=== PATIENT | female | born 1950 | race Caucasian/White ===

== ENCOUNTER 2016-08-02 05:34 | Observation (INO) | payer BC, OTHER ==
[~2016-08-02] VITALS: Ht 167.6 cm; Wt 146.5 kg
[~2016-08-02 05:34] MED LIST: BIOT10TA PO; NAPR220T95 PO
[2016-08-02] MEDS ORDERED: HEPARIN SODIUM - SQ 10,000 UNITS/ML VIAL SQ PRN (06:00)
[2016-08-02] MEDS ORDERED: ceFAZolin 2 GM PREMIX 50 ML IV SCH (06:00)
[2016-08-02] MEDS ORDERED: SODIUM CHLORIDE FLUSH PRN IVF (06:00)
[2016-08-02] MEDS ORDERED: SODIUM CHLORID 0.9% 500 ML IV SCH (06:15)
[2016-08-02] MEDS ORDERED: LACTATED RINGER'S 1000 ML IV SCH (06:15)
[2016-08-02] MEDS ORDERED: METOPROLOL TARTRATE 25 MG TAB PO PRN (06:15)
[2016-08-02] MEDS ORDERED: INSULIN HUMAN REGULAR 1,000 UNITS/10 ML VIAL SQ PRN (06:15)
[2016-08-02 06:29] VITALS: BP 163/92; PULSE 95; RESP 20; TEMP 98.3; O2SAT 94
[2016-08-02] MEDS ORDERED: LIDOCAINE 1%/EPINEPHrine 1:100,000 SOLN 30 ML VIAL ONE (06:56)
[2016-08-02] MEDS ORDERED: METHYLENE BLUE 10 MG/ML VIAL ONE (06:56)
[2016-08-02] MEDS ORDERED: MIDAZOLAM HCL 2 MG/2 ML VIAL ONE (07:21)
[2016-08-02] MEDS ORDERED: FAMOTIDINE 20 MG/2 ML VIAL ONE (07:22)
[2016-08-02] MEDS ORDERED: ACETAMINOPHEN 1000 MG/100 ML VIAL IV ONE (07:26)
[2016-08-02] MEDS ORDERED: SODIUM CHLORIDE FLUSH BID IVF SCH (09:00)
[2016-08-02] MEDS ORDERED: ceFAZolin INJ 1,000 MG VIAL IV ONE (10:40)
[2016-08-02] MEDS ORDERED: METHYLENE BLUE 10 MG/ML VIAL OTHER ONE (11:00)
[2016-08-02] MEDS ORDERED: NORMOSOL R INJ 2,000 ML IV ONE (12:00)
[2016-08-02] MEDS ORDERED: ePHEDrine/NS 50 MG/5 ML SYR IV ONE (12:00)
[2016-08-02] MEDS ORDERED: LACTATED RINGER'S 1000 ML INJ 1,000 ML IV ONE (12:00)
[2016-08-02] MEDS ORDERED: NEOSTIGMINE 3 MG/3 ML SYR IV ONE (12:00)
[2016-08-02] MEDS ORDERED: PROPOFOL 200 MG/20 ML AMP IV ONE (12:00)
[2016-08-02] MEDS ORDERED: ONDANSETRON HCL 4 MG/2 ML VIAL IV PUSH ONE (12:00)
[2016-08-02] MEDS ORDERED: HYDROmorphone HCL PF 1 MG/ML VIAL IVP PRN (12:30)
[2016-08-02] MEDS ORDERED: LORazepam 0.5 MG TAB PO PRN (12:30)
[2016-08-02] MEDS ORDERED: ONDANSETRON HCL 4 MG/2 ML VIAL IVP PRN (12:30)
[2016-08-02] MEDS ORDERED: oxyCODONE/ACETAMINOPHEN 5 MG/325 MG TAB PO PRN (12:30)
[2016-08-02] MEDS ORDERED: DO NOT ADM ANY ANTICOAGULANT DRUGS XX PRN (13:00)
[2016-08-02] MEDS ORDERED: ONDANSETRON INJ 8 MG in DEXTROSE 5% IN WATER INJ 50 ML IV PUSH PRN ×2 (13:00)
[2016-08-02] MEDS: D5-1/2 NS + KCL 20 MEQ INJ 1,000 ML IV SCH ×2 (13:00→20:24)
[2016-08-02] MEDS ORDERED: fentaNYL CITRATE 250 MCG/5 ML AMP ONE (13:04)
[2016-08-02] MEDS: KETOROLAC TROMETHAMINE 30 MG/ML (IVP) VIAL IVP SCH ×2 (13:15→18:21)
[2016-08-02] MEDS ORDERED: *ONDANSETRON 4 MG VIAL PERIprocedural Use ONLY ONE (13:39)
[2016-08-02 15:48] VITALS: O2SAT 96
[2016-08-02 16:00] VITALS: BP 141/81; PULSE 94; RESP 20; TEMP 98; O2SAT 95
[2016-08-02] MEDS: oxyCODONE/ACETAMINOPHEN 5 MG/325 MG TAB PO PRN (16:10)
--- NOTE | 2016-08-02 16:26 | PD.ONC.PN ---
Subjective Subjective Remarks post op note pt awake c/o some nausea RN reports zofran at noon will give order for Reglan 10mg PRN denies pain daughter at bedside Objective Data Date Time Temp Pulse Resp B/P Pulse Ox O2 Delivery O2 Flow Rate FiO2 08/02/16 15:48 96 Nasal Cannula 2.00 08/02/16 15:00 97.7 89 16 142/80 96 Nasal Cannula 2 08/02/16 14:30 97.6 88 16 137/78 95 Nasal Cannula 2 08/02/16 14:15 15 08/02/16 14:00 86 16 138/77 94 Nasal Cannula 2 08/02/16 13:45 85 15 140/79 94 Nasal Cannula 2 08/02/16 13:30 84 15 139/80 93 Nasal Cannula 2 08/02/16 13:15 85 15 141/83 97 Nasal Cannula 4 08/02/16 13:00 85 15 142/83 94 Nasal Cannula 4 08/02/16 12:45 88 15 140/82 92 Nasal Cannula 4 08/02/16 12:30 97.4 84 18 148/87 97 Simple Mask 8 08/02/16 06:29 98.3 95 20 163/92 94 08/02/16 08/02/16 08/02/16 07:00 15:00 23:00 Intake Total 3250 ml Output Total 1375 ml Balance 1875 ml Laboratory Results Laboratory Tests Test 08/02/16 06:15 Blood Type A POSITIVE Antibody Screen NEGATIVE Blood Bank Comment Administered Medications Medications (Trade) Dose Ordered Sig/Madeline Route PRN Reason Start Time Stop Time Status Last Admin Dose Admin Lactated Ringer's 1,000 ml @ 30 mls/hr Q24H IV 08/02/16 06:15 08/02/16 06:30 Potassium Chloride/Dextrose/ Sod Cl (D5-1/2 NS + KCl 20 Meq Inj) 1,000 ml @ 125 mls/hr Q8H IV 08/02/16 12:17 08/02/16 13:00 Ketorolac Tromethamine (Toradol Inj) 15 mg Q6H IVP 08/02/16 13:00 08/03/16 07:01 08/02/16 13:15 Oxycodone/ Acetaminophen (Percocet 5-325 Mg) 1 tab Q4H PRN PO PAIN SCALE 1 TO 5 08/02/16 12:30 08/02/16 16:10 Objective Remarks GENERAL: Well-nourished, well-developed patient. SKIN: Warm and dry. HEAD: Normocephalic., mild facial swelling EYES: No scleral icterus. No injection or drainage. CARDIOVASCULAR: Regular rate and rhythm without murmurs. RESPIRATORY: Breath sounds equal bilaterally. No accessory muscle use. GASTROINTESTINAL: SS are C/D/I EXTREMITIES: No cyanosis, or edema. MUSCULOSKELETAL: TEDs and SCDs NEUROLOGICAL: No obvious focal deficit. Awake, alert, and oriented x3. PSYCHIATRIC: Appropriate mood and affect; insight and judgment normal. Assessment/Plan Problem List: (1) Post-operative state Status: Acute Plan: RA lap hyst with BSO and lymph node bx post op orders in chart will add Reglan to help with nausea d/c Drake in AM pain meds per EMR anticipate discharge in next 24 hours Raquel Mckeon Aug 02, 2016 16:26
[2016-08-02] MEDS ORDERED: METOCLOPRAMIDE HCL 10 MG/2 ML VIAL IV PUSH PRN (16:30)
[2016-08-02 20:19] VITALS: BP 130/70; PULSE 102; RESP 20; TEMP 97.6; O2SAT 93
[2016-08-02 20:46] VITALS: O2SAT 96
[2016-08-02] MEDS ORDERED: SODIUM CHLORIDE 0.9% FLUSH 5 ML FLUSH FLUSH SCH (21:00)
[2016-08-03 00:19] VITALS: BP 131/75; PULSE 99; RESP 19; TEMP 97.3; O2SAT 93
[2016-08-03] MEDS: KETOROLAC TROMETHAMINE 30 MG/ML (IVP) VIAL IVP SCH ×2 (00:40→04:56)
[2016-08-03] MEDS: SODIUM CHLORIDE 0.9% FLUSH 5 ML FLUSH FLUSH PRN ×2 (00:40→04:56)
[2016-08-03] MEDS: D5-1/2 NS + KCL 20 MEQ INJ 1,000 ML IV SCH (03:50)
[2016-08-03 04:19] VITALS: BP 129/71; PULSE 96; RESP 17; TEMP 97.1; O2SAT 92
[2016-08-03 07:04] LABS: AUTOMATED NEUTROPHIL # 7.6 TH/MM3 (1.8-7.7); BASOPHIL % 0.3 % (0.0-2.0); EOSINOPHIL % 0.1 % (0.0-4.0); HEMATOCRIT 34.7 % (35.0-46.0); HEMO FLAGS DIFF FINAL; LYMPH % 10.5 % (9.0-44.0); MEAN CELL VOLUME 90.5 FL (80.0-100.0); MEAN CORPUSCULAR HEMOGLOBIN 31.8 PG (27.0-34.0); MEAN CORPUSCULAR HGB CONC 35.1 % (32.0-36.0); MONO % 7.1 % (0.0-8.0); PLATELET COUNT 182 TH/MM3 (150-450); RED BLOOD COUNT 3.83 MIL/MM3 (4.00-5.30); RED CELL DISTRIBUTION WIDTH 13.1 % (11.6-17.2); WHITE BLOOD COUNT 9.2 TH/MM3 (4.0-11.0)
[2016-08-03] MEDS ORDERED: OXYC1TAB63 PO (07:13)
[2016-08-03 07:29] LABS: BICARBONATE 26.2 MEQ/L (21.0-32.0); POTASSIUM 4.1 MEQ/L (3.5-5.1)
[2016-08-03 08:00] VITALS: BP 113/72; PULSE 81; RESP 20; TEMP 98.2; O2SAT 95
[2016-08-03 08:36] VITALS: O2SAT 94
[2016-08-03] MEDS: oxyCODONE/ACETAMINOPHEN 5 MG/325 MG TAB PO PRN (09:52)
--- NOTE | 2016-08-07 14:38 | MP ---
cc: AYALA SANDOVAL MD, JULIE D. MD [facility], [facility] DATE OF SURGERY 08/02/16 PREOPERATIVE DIAGNOSIS 1. Endometrial adenocarcinoma. 2. Enlarged uterus. 3. Noncompliance with recommended care. POSTOPERATIVE DIAGNOSIS 1. Endometrial adenocarcinoma. 2. Enlarged uterus. 3. Noncompliance with recommended care. PROCEDURE Robotic-assisted laparoscopic hysterectomy, bilateral salpingo-oophorectomy, bilateral pelvic lymph node excisional biopsies. SURGEON Ayala Sandoval MD [employer]ADE MARK ATTORNEY [place] clinical research assistant, general endotracheal anesthesia. ESTIMATED BLOOD LOSS 300 cc. IV FLUIDS 3000 cc. URINE OUTPUT 40 cc. HISTORY This a 66-year-old female who was diagnosed with grade 1 endometrial cancer by tissue biopsy in 2007. She was counseled, surgery was recommended. She ultimately declined surgery because it was a low grade tumor. We talked about the potential value of progesterone management. She was placed on progesterone but was noncompliant with that medication and then she was noncompliant with followup. She contacted our office again recently after not hearing from her for many years stating that her bleeding is heavier, more persistent and now she would like to consider surgery. Extensive discussions reviewed the pros, cons, risks and benefits. Recent CAT scan imaging did not determine any overt evidence of metastatic disease but we know the resolution of CAT scan may be limited especially given her body habitus of 142 kg. The uterus appeared prominent and was enlarged with some leiomyomas. She is counseled further. She is seen again in the preop holding area. She is in favor of hysterectomy, bilateral salpingo-oophorectomy. She already has some chronic lower extremity swelling and in our discussions we agreed that we would not do full lymphadenectomy of normal-appearing lymph node tissue in an effort to look for microscopic disease but if there were obvious enlarged lymph nodes that appeared suspicious we would remove those and the pros, cons, risks and benefits of that approach were discussed. She expressed good understanding and agreed with that plan, although, admittedly she still remains uncertain as to whether or not she would consider any post surgical therapy. FINDINGS Uterine cavity sounded to 14 cm. It was symmetrically enlarged. There were some probable leiomyomas as well as diffuse enlargement of the uterus. The ovaries appeared normal. There was solid paratubal cyst on the right side, small paratubal cyst on the left. In the peritoneal cavity the liver, diaphragm edges were smooth. The omentum grossly appeared normal as did the mesentery, large and small bowel. There were some mild adhesions against left pelvic sidewall where the colon was adherent to the left pelvic sidewall. There were several prominent enlarged lymph nodes in the right and left pelvis. No overtly enlarged lymph nodes could be appreciated on inspection and palpation and the para-aortic and pericaval region. STATEMENT OF COMPLEXITY The complexity of this case was increased, all aspects, challenges were increased due to her body habitus 142 kg. Additionally, the markedly enlarged uterus to 14 cm increased technical difficulty and of this case and a modifier should be applied accordingly. PROCEDURE The patient was taken to the operating room and placed in dorsal lithotomy position after general endotracheal anesthesia was administered. A time-out was undertaken. The patient was identified by sight, recognition and hospital ID bracelet and the proposed procedure was reviewed and confirmed. She was carefully positioned in padded [place]ino stirrups. Her arms were padded and secured to the sides. She was further secured to the table with egg crate padding and tape in a cross chest over the shoulder fashion. All sites were noted to be properly aligned with no malalignments or pressure points. She was prepped in sterile fashion, draped below the waist, placed in high lithotomy position, cervix was grasped, uterine cavity sounded to 14 cm, cervix dilated and a large VCare manipulator inserted and secured usual fashion. Drake catheter placed in the bladder. She was returned to low lithotomy position. Change of sterile gloves was undertaken. We completed draping in anticipation of laparoscopy confirmed that an orogastric airway was in the stomach on suction and with manual elevation of the abdominal wall and direct laparoscopic visualization 5 mm cannula placed in the left upper abdomen and an atraumatic entry was confirmed. Carbon dioxide gas was insufflated into the peritoneal cavity. 12 mm cannula placed in midline above the umbilicus, 8 mm cannula was placed in the right upper abdomen left lateral abdomen. The original 5 changed for an 8-mm cannula. She was placed in steep Trendelenburg position. Peritoneal washings were obtained for cytology. The anatomy was surveyed with findings as described above. Three Ray-Ralph sponges were placed around the root of the small bowel mesentery after the small bowel was folded back on its mesenteric root. Robotic system brought into the operative field and attached in usual fashion. Monopolar scissors, fenestrated bipolar forceps and prograsp manipulators placed in arms #1, 2 and 3 respectively and I took my place at the surgeon's console. Right round ligament isolated, cauterized, transected. The anterior and posterior leafs of the broad ligament were opened. The right ureter was identified. The right infundibulopelvic ligament was isolated as the intervening peritoneum was opened. The infundibulopelvic ligament was isolated to the level of the pelvic brim where it was cauterized and transected. Posterior peritoneum was opened along the right side of the uterus and cervix and the right vesicouterine peritoneum was dissected off the lower uterine segment and cervix. The right uterine vessels were skeletonized and cauterized. Attention was directed toward the left side. The left round ligament isolated, cauterized, transected. The anterior and posterior leafs of the broad ligament were opened. The left ureter was identified. Left infundibulopelvic ligament was isolated. The intervening peritoneum was opened. The infundibulopelvic ligament was cauterized at the level of the pelvic brim and transected. Posterior peritoneum opened along the left side of uterus and cervix and the left vesicouterine peritoneum dissected off the lower uterine segment and cervix. The uterine vessels were skeletonized, cauterized and transected as were the cardinal, paracervical and uterosacral ligaments. Attention was redirected toward the right side where now the right uterine vessels were transected. The cardinal paracervical and uterosacral ligaments were isolated, cauterized and transected in a stepwise fashion. Attention was directed toward the right pelvic lymph nodes. There was markedly enlarged elongated lymph node along the external iliac artery or possibly a collection of lymph nodes. There was another and the length of this was probably at least 3 cm. There was another lymph node approximately 1.5 cm along the external iliac vein and another enlarged prominent lymph node along the distal segment of the external iliac vessels. The paravesical space, pararectal spaces were opened. Each of these lymph nodes were isolated, removed with the bipolar cautery and sharp dissection circumferentially in a cautious stepwise fashion, dissecting them from the adjacent vessels and structures and each of these lymph nodes were placed in the right pericolic gutter for later retrieval. Inspection and palpation of the lymph node bed revealed no remaining enlarged lymph nodes on the right side. Attention was then directed toward the left side where similarly retroperitoneal dissection was initiated. The paravesical, pararectal spaces were opened. There are two enlarged lymph nodes, each approximately 1.5 to 2 cm in size along the external iliac artery that were approximately 2 to 2.5 cm lymph node in the obturator space. Each of these were isolated and dissected free with bipolar cautery and sharp dissection circumferentially, removing the external iliac lymph nodes and then attention into the obturator space where similarly the enlarged obturator lymph node was isolated, removed. Vascular attachments were cauterized and it was and these were placed in the left pericolic gutter for later retrieval. Inspection and palpation revealed no remaining enlarged lymph nodes in the left pelvis. Visual inspection, palpation of the para-aortic and pericaval regions did not reveal any overtly enlarged lymph nodes and so attention was redirected to the pelvis. Colpotomy was performed 360 degrees incision the cervix from the upper vagina. The specimen cannot be delivered transvaginally by the surgical services assistant so I left the surgeon's console where with countertraction using multiple tenaculums, repositioning the specimen was able to be eventually delivered including the uterus, cervix, right tube and ovary and left ovary that had approximately 7 cm smooth-walled benign-appearing cyst. A pneumooccluder balloon was placed in the vagina to maintain pneumoperitoneum when I returned to the surgeon's console. EndoCatch bags were used transvaginally to capture first the right pelvic lymph nodes which were collected and removed followed by the left pelvic lymph nodes which were collected and removed and then each of the three Ray-Ralph sponges were placed in the EndoCatch bag and a single EndoCatch bag withdrawn transvaginally. They were reinspected and noted to be removed in their entirety. Preliminary counts were correct. There were no remaining foreign objects in the peritoneal cavity. Instruments 1 and 3 exchanged for needle drivers as 0 Vicryl suture was introduced. The vaginal cuff was closed starting at the left corner, we were full-thickness closure incorporating the posterior peritoneum and edge of the uterosacral ligament tied via instrument tie. The closure was held on counter traction as a running full-thickness continuous closure was carried across the vaginal apex to the contralateral corner where similarly fixed secured tied via instrument tie. The needle was cut and removed. The pelvis was thoroughly irrigated. The integrity of the bladder was confirmed by filling the bladder with saline dyed with methylene blue. It distended nicely under pressure. There were no areas of weak spots, certainly no extravasation of dye and a good margin between the edge of the bladder and the vaginal cuff suture line. Good peristalsis of ureters bilaterally and neurovascular structures were intact and the bladder was drained. Pelvis was again irrigated, hemostatic Fawn agent was placed across the vaginal cuff and then the lateral pelvic sidewalls. It was felt that all reasonable surgical objectives in this patient had been completed so the robotic instruments were removed. The robotic system was disengaged from the operative field and I reentered the bedside under sterile condition. A 12 mm fascial defect was closed with interrupted 0 Vicryl sutures tied securely rendering the fascia completely airtight and hemostatic. The remaining cannulas were withdrawn. Carbon dioxide gas was removed. 3-0 Vicryl subcutaneous, 3-0 Vicryl subcuticular and Steri-Strips used to close these incisions. She was returned to dorsal lithotomy position, reinspected, the vaginal cuff was supported. There were no vaginal lacerations. No remaining foreign objects in the vagina. Preliminary and final counts were correct. Then she was returned to dorsal supine position and was pending reversal of anesthesia when I left the operating room to precede her to the Post Anesthesia Care Unit and to speak with family members who waiting in the surgical waiting room. MD EUNICE Walters/GABINO /1:03 PM /1:55 PM
--- NOTE | 2016-08-11 22:25 | MD ---
cc: LYN MCNEIL M.D., KELLY L. MD SCHNEIDER,JIMBO Witt MD ADMISSION DATE: 08/02/2016 DISCHARGE DATE: 08/03/2016 PROCEDURE 08/02/2016 - Robotic-assisted laparoscopic hysterectomy, bilateral salpingo-oophorectomy, resection of bilateral enlarged pelvic lymph nodes. DIAGNOSIS Endometrial cancer. HOSPITAL COURSE A 66-year-old female who had done well in early postop period. Ins and outs 5141/2175. Labs this morning - H&H 12.2 and 34.7, white count 9.2, platelets 182,000. Electrolytes pending at the time of this dictation. PHYSICAL EXAMINATION VITAL SIGNS: Afebrile, pulse 96, respirations 17, blood pressure 129/71, O2 saturations greater than or equal to 95% while awake. GENERAL: Alert and oriented x 3. LUNGS: Clear at apices. Mild rales at the bases. CARDIOVASCULAR: Regular rate and rhythm. ABDOMEN: Soft. Incisions clean and dry. VERIFIER: No bleeding. EXTREMITIES: SCDs intact, nontender. ASSESSMENT Postop day #1 doing reasonably well in early postop period. She is tolerating oral intake. Drake catheter has been removed. She is pending voiding and movement outside of the bed. In no acute distress. Pain adequately controlled. Activities, restrictions discussed. Preliminary findings at the time of surgery reviewed. Final pathology is pending. Questions were answered. She expressed good understanding. PLAN Anticipate discharge to home as I believe she will be able to meet criteria as the morning progresses for discharge to outpatient status. Our office number is again made available. She is to contact our office to schedule followup in 2 weeks. She is to resume prior medications. Prescription will be provided for Percocet and she is to contact our office should she have any questions or problems between now and the time of followup. MD EUNICE Walters/LILA /7:17 AM /10:17 PM
== END 2016-08-03 13:34 | disposition home or self-care (01) ==
LOC: HSDC 05:34 → HSDI 12:19 → HOCB 15:20
PROVIDERS: ADMIT Obstetrics & Gynecology Gynecologic Oncology; ATTEND Obstetrics & Gynecology Gynecologic Oncology
DX: C54.1 Malignant neoplasm of endometrium (principal); N73.6 Female pelvic peritoneal adhesions (postinfective); N85.2 Hypertrophy of uterus; N83.8 Other noninflammatory disorders of ovary, fallopian tube and broad ligament; R59.9 Enlarged lymph nodes, unspecified; Z91.19 Patient's noncompliance with other medical treatment and regimen
CPT/HCPCS: 00840; 38570; 58554; 80048; 85025; 86850; 86900; 86901; 88305; 88307; 88331; 94150; G0378; J0131; J0690; J1644; J1885; J2250; J2405; J2710; J2765; J3010; J3480; J7120